=== PATIENT | female | born 1985 | race Caucasian/White ===

== ENCOUNTER 2024-12-24 15:48 | Emergency (ER) | payer BC, SELFPAY ==
[2024-12-24 16:10] VITALS: BP 142/89; PULSE 83; RESP 18; TEMP 37.1; O2SAT 99; BMI 28.2
[2024-12-24] MEDS: KETOROLAC 30 MG/ML VIAL 15 MG IV (16:52)
[2024-12-24 16:53] LABS: Add Manual Diff / Slide Review NO; Hematocrit 36.4 % (36-46); Hemoglobin 12.2 g/dL (12.0-16.0); Lymphocytes Absolute Auto 2000 /uL (1100-4500); Mean Corpuscular HGB Conc 33.5 % (30-36); Mean Corpuscular Hemoglobin 30.8 PG (26-34); Mean Corpuscular Volume 92.0 fL (80-100); Platelet Count 259 X10^3/uL (150-400)
[2024-12-24 17:05] LABS: Alanine Aminotransferase 14 IU/L (<35); Albumin 4.3 g/dL (3.5-5.0); Albumin Globulin Ratio 1.3 (1.0-2.8); Alkaline Phosphatase 48 U/L (38-126); Blood Urea Nitrogen 11 mg/dL (7-17); Calcium 9.0 mg/dL (8.4-10.2); Carbon Dioxide 26 mmol/L (22-32); Chloride 106 mmol/L (98-107); Estimated Glomerular Filt Rate > 60 mL/min (>60); Globulin 3.3 g/dL (1.7-4.1); Glucose 99 mg/dL (70-99); HEMOLYSIS < 15 (0-50); Potassium 3.9 mmol/L (3.4-5.1); Sodium 139 mmol/L (137-145); Total Protein 7.6 g/dL (6.3-8.2)
[2024-12-24 17:14] LABS: Appearance Urine UA CLEAR; Bilirubin Urine UA NEGATIVE (NEGATIVE); Color Urine UA YELLOW; Glucose Urine UA NEGATIVE (Negative); Ketones Urine UA NEGATIVE (NEGATIVE); Leukocyte Esterase Urine UA NEGATIVE (NEGATIVE); Nitrite Urine UA NEGATIVE (Negative); Occult Blood Urine UA TRACE-INTACT (Negative); Protein Urine UA NEGATIVE (Negative); Specific Gravity Urine UA 1.010 (1.000-1.035); Urobilinogen Urine UA 0.2 E.U./dL (0.2)
[2024-12-24 17:16] LABS: pH Urine UA 7.0 (4.5-8.0)
--- NOTE | 2024-12-24 17:21 | DI.CT.S_ITS ---
PROCEDURE: CT ABDOMEN PELVIS W CON INDICATIONS: rectal, low back/pelvid pain worsening over 48 hr TECHNIQUE: After the administration of intravenous contrast, axial sections acquired from the lung bases to the pubic symphysis. Coronal and sagittal reformats were performed. For radiation dose reduction, the following was used: automated exposure control, adjustment of mA and/or kV according to patient size. COMPARISON: None. FINDINGS: Image quality: Diagnostic. Lower Chest: No significant findings. ABDOMEN: Liver: No solid mass. Gallbladder: No radiopaque gallstones or wall thickening. Biliary ducts: No biliary dilation. Pancreas: No ductal dilation. Spleen: Size is within normal limits. Adrenal Glands: No adrenal nodules. Kidneys and Ureters: No hydronephrosis. No solid mass. No complex renal cystic lesion which requires follow up. Stomach and Bowel: Normal colonic caliber, without significant wall thickening. Peritoneum: No abnormal intraperitoneal fluid. No free air. Ventral Wall: No significant ventral hernia. Abdominal Nodes: No retroperitoneal or mesenteric adenopathy by size criteria. Vessels: Aorta and inferior vena cava are normal in size. Incidental note made of the presence of a circumferential left renal vein. The inferior branch crosses quite inferiorly at the level of the aortic bifurcation. PELVIS: Pelvic Organs: Uterus didelphys is suspected, with [address] Bladder: No bladder wall thickening, accounting for underdistention. Pelvic Nodes: No enlarged lymph nodes. Miscellaneous: No inguinal hernias are seen. Bones: No aggressive osseous abnormality. Broad-based moderately large diffuse disc bulge at L4-L5 with possible impingement on the left greater than right L5 nerve roots in the lateral recesses. Reference axial image 85 of series 2. IMPRESSION: 1. 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 2. Very large fecal load. 3. Broad-based disc bulge L4-L5 with possible lateral recess impingement on the bilateral L5 nerve roots, left greater than right. Recommend correlation with presence or absence of associated symptomatology. 4. Incidental note made of a circumferential left renal vein with the retroaortic component being quite low, at the level of the aortic bifurcation. This is a normal variant. Dictated by: Ruben Kaufman M.D. on 12/24/2024 at 17:50 Approved by: Ruben Kaufman M.D. on 12/24/2024 at 18:02
[2024-12-24 17:24] LABS: Culture Indicated Urine Cult Not Indicated
[2024-12-24 20:14] VITALS: PULSE 80; O2SAT 97
[2024-12-24 20:30] VITALS: BP 130/76; PULSE 82; O2SAT 98
--- NOTE | 2024-12-24 20:42 | ED_ITS ---
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 Drove home the next day and noted significant tailbone, deep pelvic/low back pain that has gotten progressively worse. Currently describes it as an 8/10 states that bearing down in any way exquisitely painful. She states that having a bowel movement is tender because of the Valsalva maneuver not because of anal tenderness or pain. She took 800 mg of ibuprofen this morning with some relief. She was seen on [facility] with x-rays done of the lumbar spine that were unremarkable. She describes significant abdominal bloating increasing difficulty with voiding secondary to deep pelvic pain. Comes in for further evaluation. She denies fevers, vaginal discharge, no new sexual partners, no obvious specific trauma aside from the yd work mentioned. Has not had similar type pain Related Data Previous Rx's ?Medication ?Instructions ?Recorded dexamethasone 4 mg tablet 10 mg (2.5 x 4 mg) PO DAILY #5 tabs 12/24/24 oxycodone-acetaminophen 5 mg-325 1 tab PO Q6H PRN pain #14 tabs 12/24/24 mg tablet Allergies Allergy/AdvReac Type Severity Reaction Status Date / Time No Known Drug Allergies Allergy Verified 12/24/24 16:10 Review of Systems Review of Systems Narrative: Pertinent positive and negative findings as per HPI Patient History Social History Smoking Status: Current every day smoker Smoking Status: Current every day smoker tobacco type: cigarettes Exam Initial Vital Signs Initial Vital Signs: Vital Signs Temperature 98.7 F 12/24/24 16:10 Pulse Rate 83 12/24/24 16:10 Respiratory Rate 18 12/24/24 16:10 Blood Pressure 142/89 H 12/24/24 16:10 Pulse Oximetry 99 12/24/24 16:10 Oxygen Delivery Method Room Air 12/24/24 16:10 General: Healthy appearing, much more comfortable standing than sitting, is pacing the room and quite cooperative HEENT: Moist mucous membranes, normal sclera with reactive pupils, Respiratory: Lungs are clear to auscultation, no wheezing no rales no rhonchi. Full and symmetrical air movement Cardiac: Regular rate and rhythm no murmurs no bruits Abdomen: Soft, mild low abdominal tenderness, no midline lumbar spine tenderness, no skin changes redness fullness or warmth along the intergluteal cleft Skin: Warm and dry, no rashes Neurologic: Grossly neurologically intact with no obvious asymmetries or abnormalities Extremities: No trauma, well perfused Psych: Cooperative, appropriate insight and affect Course Orders Ordered: ED Orders 12/24/24 16:45 Complete Blood Count AUTO DIFF Stat Comprehensive Metabolic Panel Stat 12/24/24 17:01 Urinalysis and Microscopic Stat 12/24/24 17:21 CT abdomen pelvis w con Stat Discontinued Medications Ketorolac Tromethamine (Ketorolac 30 Mg/Ml Vial) 15 mg IV NOW ONE Stop: 12/24/24 16:20 Last Admin: 12/24/24 16:52 Dose: 15 mg Documented By: SB Vital Signs Vital signs: Vital Signs - 8 hr 12/24/24 16:10 12/24/24 20:14 Temperature 98.7 F Pulse Rate 83 80 Respiratory Rate 18 Blood Pressure 142/89 H Pulse Oximetry 99 97 Oxygen Delivery Method Room Air MDM - Back Pain/Injury Lab Data 12/24/24 16:45 12/24/24 16:45 Labs: Lab Results 12/24/24 12/24/24 Range/Units 16:45 17:01 WBC 9.1 (4.5-11.0) X10^3/uL RBC 3.95 L (4.0-5.2) X10^6/uL Hgb 12.2 (12.0-16.0) g/dL Hct 36.4 (36-46) % MCV 92.0 (80-100) fL MCH 30.8 (26-34) PG MCHC 33.5 (30-36) % RDW 12.6 (11.6-14.8) % Plt Count 259 (150-400) X10^3/uL Neut % (Auto) 66.0 (50-75) % Lymph % (Auto) 21.8 L (25-40) % [place] % (Auto) 10.2 (3-14) % Eos % (Auto) 1.7 L (2-4) % Baso % (Auto) 0.3 (0-2) % Neut # (Auto) 6000 (0530-1272) /uL Lymph # (Auto) 2000 (2904-9292) /uL [place] # (Auto) 900 (0-900) /uL Eos # (Auto) 200 (0-450) /uL Baso # (Auto) 0 (0-100) /uL Sodium 139 (137-145) mmol/L Potassium 3.9 (3.4-5.1) mmol/L Chloride 106 (98-107) mmol/L Carbon Dioxide 26 (22-32) mmol/L BUN 11 (7-17) mg/dL Creatinine 0.56 (0.52-1.04) mg/dL Estimated GFR > 60 (>60) mL/min BUN/Creatinine Ratio 19.6 (6-22) Glucose 99 (70-99) mg/dL Calcium 9.0 (8.4-10.2) mg/dL Total Bilirubin 0.3 (0.2-1.3) mg/dL AST 21 (14-36) IU/L ALT 14 (<35) IU/L Alkaline Phosphatase 48 (38-126) U/L Total Protein 7.6 (6.3-8.2) g/dL Albumin 4.3 (3.5-5.0) g/dL Globulin 3.3 (1.7-4.1) g/dL Albumin/Globulin Ratio 1.3 (1.0-2.8) Urine Color Yellow Urine Appearance Clear Urine pH 7.0 (4.5-8.0) Ur Specific [place] 1.010 (1.000-1.035) Urine Protein Negative (Negative) Urine Glucose (UA) Negative (Negative) g/dL Urine Ketones Negative (NEGATIVE) Urine Occult Blood Trace-intact (Negative) Urine Nitrate Negative (Negative) Urine Bilirubin Negative (NEGATIVE) Urine Urobilinogen 0.2 (0.2) E.U./dL Ur Leukocyte Esterase Negative (NEGATIVE) Urine RBC 0-1/hpf (0-5/HPF) Urine WBC None seen (0-5/HPF) Ur Squamous Epith Cells 0-1 /hpf (0-5/HPF) Urine Bacteria None seen (None) Ur Culture Indicated? Cult not indicated Vol Urine Centrifuged 10ml (spun) Point of Care Testing Test Results Negative Imaging Data CT scan - abdomen/pelvis: Radiologist's Impression: PROCEDURE: CT ABDOMEN PELVIS W CON INDICATIONS: rectal, low back/pelvid pain worsening over 48 hr TECHNIQUE: After the administration of intravenous contrast, axial sections acquired from the lung bases to the pubic symphysis. Coronal and sagittal reformats were performed. For radiation dose reduction, the following was used: automated exposure control, adjustment of mA and/or kV according to patient size. COMPARISON: None. FINDINGS: Image quality: Diagnostic. Lower Chest: No significant findings. ABDOMEN: Liver: No solid mass. Gallbladder: No radiopaque gallstones or wall thickening. Biliary ducts: No biliary dilation. Pancreas: No ductal dilation. Spleen: Size is within normal limits. Adrenal Glands: No adrenal nodules. Kidneys and Ureters: No hydronephrosis. No solid mass. No complex renal cystic lesion which requires follow up. Stomach and Bowel: Normal colonic caliber, without significant wall thickening. Peritoneum: No abnormal intraperitoneal fluid. No free air. Ventral Wall: No significant ventral hernia. Abdominal Nodes: No retroperitoneal or mesenteric adenopathy by size criteria. Vessels: Aorta and inferior vena cava are normal in size. Incidental note made of the presence of a circumferential left renal vein. The inferior branch crosses quite inferiorly at the level of the aortic bifurcation. PELVIS: Pelvic Organs: Uterus didelphys is suspected, with [address] Bladder: No bladder wall thickening, accounting for underdistention. Pelvic Nodes: No enlarged lymph nodes. Miscellaneous: No inguinal hernias are seen. Bones: No aggressive osseous abnormality. Broad-based moderately large diffuse disc bulge at L4-L5 with possible impingement on the left greater than right L5 nerve roots in the lateral recesses. Reference axial image 85 of series 2. IMPRESSION: 1. 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 2. Very large fecal load. 3. Broad-based disc bulge L4-L5 with possible lateral recess impingement on the bilateral L5 nerve roots, left greater than right. Recommend correlation with presence or absence of associated symptomatology. 4. Incidental note made of a circumferential left renal vein with the retroaortic component being quite low, at the level of the aortic bifurcation. This is a normal variant. Dictated by: Ruben Kaufman M.D. on 12/24/2024 at 17:50 MDM Narrative Medical decision making narrative: CC: Tailbone/low pelvic/lower abdominal pain Complicating co-morbidities: None Data collected from: patient Differential considered: Musculoskeletal pain, appendicitis, pelvic inflammatory disease, patient just started her menstrual cycle today which contributed to the pain but was different, perirectal abscess Exam documented above, pertinent findings include: Significant deep pelvic pain with nonlocalizing exam Lab Test results independently reviewed as above. Pertinent findings: CBC is unremarkable Chemistries are notable for absence of any abnormalities Urine test is negative Imaging studies independently reviewed: Lumbar spine films done earlier today on [facility] do not show acute bony abnormalities CT: IMPRESSION: 1. 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 2. Very large fecal load. 3. Broad-based disc bulge L4-L5 with possible lateral recess impingement on the bilateral L5 nerve roots, left greater than right. Recommend correlation with presence or absence of associated symptomatology. Treatments: IV dexamethasone Discussion: 39-year-old woman presents with significant low back and low pelvic pain. Blood work is reassuring. CT scan suggests L4-5 disc bulge which may explain the low back pain. Clinically, this does not appear to be acute cauda equina syndrome. We will treat the acute low back pain with 3 days of dexamethasone, ibuprofen, brief course of Percocet if needed and will ask her to follow up with her primary care physician. She has had similar pain just not quite so severe. She has responded well to physical therapy in the past we talked about the need for advanced imaging such as MRI if pain is persisting for longer than 6 weeks. 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 We talked about the use of MiraLax to try and relieve the constipation particularly in light of the addition of narcotic. She has not previously had any difficulties with constipation. Currently no indication for further imaging or reason for hospitalization. Questions are answered and she will be discharged Discharge Plan Departure Patient Disposition: Home Clinical Impression: Lumbar pain, L4-L5 disc bulge Constipation Qualifiers: Constipation type: unspecified constipation type Qualified Code(s): K59.00 - Constipation, unspecified Instructions: DI for Low Back Pain, DI for Constipation Activity Restrictions/Additional Instructions: Thank you for coming in today I think you have [address] scan does show moderate bulging of the L4-5 disc which may be causing worsening back pain. This is not a surgical emergency. This very likely will improve with conservative management and make it better with physical therapy as well. I am going to suggest 3 days of dexamethasone which is a steroid to help with inflammation. Using 400 mg of ibuprofen (2 [id number] pills) and 1 Tylenol every 6 hours can be very helpful in controlling pain. For severe pain you can use 400 mg of ibuprofen and 1 Percocet. If pain is worsening, you are having numbness, weakness or symptoms are just as bad at 6 weeks, you need to see your primary care physician and further imaging such as an MRI may be indicated Additionally, you are fairly constipated. I would recommend that you get MiraLax/polyethylene glycol. This is available [id number] at grocery stores and pharmacies. Dose is 17 g, 1 packet full or a cap full, typically it is a purple cap, of the white powder. Mixing it in water juice coffee or tea is helpful. I would recommend that you do 1 dose in half an hour if you have had no results repeat a dose and continue until your bowels start to move. You can stop at that time and use it as needed after that. Using Percocet for pain we will cause further constipation. I typically recommend at least 1 cap full of MiraLax every day that you use any narcotic. If you find that you are getting worse or develop any new symptoms, please feel free to return to the emergency department for further evaluation. Prescriptions: New oxycodone-acetaminophen 5-325 mg tablet 1 tab PO Q6H PRN (Reason: pain) Qty: 14 0RF dexamethasone 4 mg tablet 10 mg PO DAILY Qty: 5 0RF Referrals: Miscellaneous,Doctor, [Primary Care Provider, Medical] Stand Alone Forms: Patient Portal/API
[2024-12-24 21:18] VITALS: BP 133/82; PULSE 78; O2SAT 98
[2024-12-24 21:52] VITALS: BP 134/82; PULSE 79; RESP 18; TEMP 36.8; O2SAT 98
== END 2024-12-24 21:53 | disposition home or self-care (01) ==
PROVIDERS: Emergency Provider Emergency Medicine
DX: M54.50 Low back pain, unspecified (principal); K59.00 Constipation, unspecified; M51.369 Other intervertebral disc degeneration, lumbar region without mention of lumbar back pain or lower extremity pain; F17.210 Nicotine dependence, cigarettes, uncomplicated
CPT/HCPCS: 36415; 74177; 80053; 81001; 81025; 85025; 96374; 96375; 99284; J1100; J1885; Q9967